=== PATIENT | female | born 1990 | race Caucasian/White ===

== ENCOUNTER 2017-09-27 00:06 | Inpatient (IN) | payer OTHER ==
[2017-09-27] MEDS ORDERED: TRANEXAMIC ACID 1,000 MG/10 ML VIAL ONE (00:11)
[2017-09-27] MEDS ORDERED: CEFAZOLIN 1 GM/DEXTROSE/50 ML BAG IV ONE (00:16)
[2017-09-27] MEDS ORDERED: KETAMINE 500 MG/10 ML VIAL ONE (00:16)
[2017-09-27] MEDS ORDERED: TDAP ADULT 0.5 ML INJ (BOOSTRIX) IM ONE (00:24)
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
[2017-09-27 00:34] LABS: PLATELET COUNT 349 10^3/uL (150-400)
[2017-09-27] MEDS ORDERED: ROCURONIUM 50 MG/5 ML VIAL ONE ×3 (00:41→03:50)
[2017-09-27] MEDS ORDERED: fentaNYL 250 MCG/5 ML INJ ONE (00:41)
[2017-09-27] MEDS ORDERED: DEXAMETHASONE 4 MG/ML VIAL ONE (00:41)
[2017-09-27] MEDS ORDERED: PROPOFOL 200 MG/20 ML VIAL ONE (00:41)
[2017-09-27] MEDS ORDERED: ePHEDrine SULFATE 25 MG/5 ML SYR ONE (00:42)
[2017-09-27] MEDS ORDERED: PHENYLEPHRINE HCL 100 MCG/ML SYR ONE (00:42)
[2017-09-27] MEDS ORDERED: METOCLOPRAMIDE 10 MG/2 ML VIAL ONE (00:42)
[2017-09-27 00:43] LABS: INR 1.1 (0.83-1.16); PROTIME(PATIENT) 14.4 SEC (12.0-15.0)
[2017-09-27] MEDS ORDERED: SUCCINYLCHOLINE CHLORIDE 200 MG/10 ML SYR IVP ONE ×2 (00:44→04:18)
[2017-09-27] MEDS ORDERED: ALBUMIN 5% 250 ML BOTTLE IV ONE ×2 (00:46→02:31)
[2017-09-27] MEDS ORDERED: ETOMIDATE 20 MG/10 ML VIAL ONE (00:46)
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
[2017-09-27 03:06] LABS: PLATELET COUNT 197 10^3/uL (150-400)
[2017-09-27 03:11] LABS: INR 1.54 (0.83-1.16); PROTIME(PATIENT) 18.6 SEC (12.0-15.0)
[2017-09-27] MEDS ORDERED: ONDANSETRON 4 MG/2 ML VIAL IVP PRN (04:20)
[2017-09-27] MEDS ORDERED: PROMETHAZINE HCL 25 MG/ML INJ IVP PRN (04:20)
--- NOTE | 2017-09-27 04:27 | POSTOPPROG ---
Post Op Note Date of Operation: 09/27/17 Surgeon: Seamus Claudio Anesthesiologist: Jose F Anesthesia: GET(General Endotracheal) Pre-op Diagnosis: open Left femur fx Post-op Diagnosis: same Procedure: I&D femur, ORIF femur Findings: comminuted open femur fx Inf/Abcess present in the surg proc area at time of surgery?: No EBL: 50-100 Complications: none
[2017-09-27] MEDS ORDERED: PROPOFOL/EMULSION 1,000 MG/100 ML BOTTLE IV ONE (04:36)
[2017-09-27] MEDS ORDERED: SODIUM BICARBONATE 50 MEQ/50 ML SYR ONE (05:02)
[2017-09-27] MEDS ORDERED: PROPOFOL/EMULSION 100 ML IV SCH (05:25)
[2017-09-27] MEDS ORDERED: NA BICARBONATE 50 MEQ/50 ML VIAL IV ONE ×3 (05:30→06:00)
[2017-09-27] MEDS ORDERED: KETAMINE 200 MG/20 ML VIAL ONE (05:32)
[2017-09-27] MEDS: D5W 1/2 NS W/ 20 KCl/L 1,000 ML IV SCH ×2 (05:57→23:24)
--- NOTE | 2017-09-27 08:40 | PDMN ---
Medical Necessity Medical necessity: [facility] [id number] femur fx, ORIF 3 days I/D femur, ORIF femur- for Open L femur Fx. -comminuted and displaced
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
[2017-09-27] MEDS ORDERED: NALOXONE HCL 0.4 MG/ML INJ IVP PRN (09:15)
[2017-09-27] MEDS: HYDROmorphONE/DILAUDID 6 MG/30 ML PCA IV PRN (09:44)
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
[2017-09-27] MEDS ORDERED: GADOBUTROL 10 ML VIAL IVP ONE (10:37)
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
[2017-09-27 11:24] LABS: CREATINE KINASE 717 IU/L (0-156)
--- NOTE | 2017-09-27 11:50 | POSTANESTH ---
Post Anesthetic Evaluation Cardiovascular Status: Other, See Comment Respiratory Status: Other, See Comment Level of Consciousness/Mental Status: Other, See Comment Pain Control: Adequate, Prn Tx Ordered Nausea/Vomiting Control: Adequate, Prn Tx Ordered Complications Possibly Related to Anesthesia: None Noted (Pt. intubated, sedated. Hemodynamically stable.)
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
--- NOTE | 2017-09-27 14:21 | WOCRNPDOC ---
WOCRN Advanced Assessment Note - Skin Integrity Problem, Advanced Assess Left Hand Dressing Type: Adaptic Touch, Char Dressing Description: Intact, Saturated Closure Description: Not Approximated Exudate Amount: Moderate Exudate Color: Red Exudate Characteristic(s): Bloody Integumentary Issue Intervention: Dressing Changed Heidi Wound Tissue: Intact Wound Bed Color: Vega, Red Wound Bed Constitution: Red/Vega - Non Granular Tissue Wound Edges: Attached, Well Defined Site Measurement - Head-to-Toe Length X Width X Depth (cm): 3x3x0.3 Skin Integrity Problem Comment: Patient with abrasion and partial skin flap to dorsum of left hand. Small flap approximated but wound largely without flap. Unable to secure with steri-strips but will otherwise follow skin tear protocol. Wound bed cleaned with NS and gauze. Adaptic touch placed over wound bed and hydrogel to wound bed. EDDIE Adams to complete the dressing change following removal of a line so that it would not be included in the dressing. Wound care will not continue to follow this wound.
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
[2017-09-27] MEDS: OXYCODONE/APAP 5/325 TAB PO PRN ×2 (17:59→23:22)
[2017-09-28] MEDS: HYDROmorphONE/DILAUDID 6 MG/30 ML PCA IV PRN (02:48)
[2017-09-28] MEDS: OXYCODONE/APAP 5/325 TAB PO PRN ×3 (06:39→19:08)
[2017-09-28 06:45] LABS: INR 1.65 (0.83-1.16); PROTIME(PATIENT) 19.6 SEC (12.0-15.0)
[2017-09-28 10:32] LABS: PLATELET COUNT 98 10^3/uL (150-400)
[2017-09-28] MEDS ORDERED: ACETAMINOPHEN 325 MG TAB PO PRN (12:56)
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
[2017-09-29] MEDS: OXYCODONE/APAP 5/325 TAB PO PRN ×4 (00:50→19:13)
[2017-09-29] MEDS ORDERED: ALTEPLASE 2 MG VIAL IVP PRN (07:41)
[2017-09-29] MEDS ORDERED: BISACODYL 10 MG SUPP PR PRN (08:54)
[2017-09-29] MEDS ORDERED: LACTULOSE 20 GM/30 ML UDCUP PO PRN (08:54)
[2017-09-29] MEDS ORDERED: CEFUROXIME AXETIL 250 MG TAB PO SCH (09:00)
[2017-09-29] MEDS: SENNOSIDES/DOCUSATE SODIUM TAB PO SCH ×2 (10:27→21:28)
[2017-09-29] MEDS: CEFUROXIME AXETIL 250 MG TAB PO SCH ×2 (11:06→21:29)
[2017-09-29] MEDS: oxyCODONE IR 5 MG TAB PO PRN ×2 (15:34→23:10)
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
[2017-09-30] MEDS: OXYCODONE/APAP 5/325 TAB PO PRN ×4 (01:58→18:38)
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
[2017-09-30] MEDS ORDERED: NS 500 ML IV ONE (10:53)
[2017-09-30] MEDS: SENNOSIDES/DOCUSATE SODIUM TAB PO SCH ×2 (12:02→20:26)
[2017-09-30] MEDS: CEFUROXIME AXETIL 250 MG TAB PO SCH (12:04)
[2017-09-30] MEDS: oxyCODONE IR 5 MG TAB PO PRN ×2 (13:58→23:08)
--- NOTE | 2017-09-30 14:25 | ASMTCMCOM ---
CM Note CM Note Notes: Chart reviewed for dc planning purposes. Patient needing transfusion for decreased H&H. Therapies recommending inpatient rehab, CM to follow. PLan: Inpatient rehab evaluation. Date Signed: 09/30/2017 02:24 PM Electronically Signed By:Lucy Gillette RN
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
[2017-09-30 16:47] LABS: INR 1.1 (0.83-1.16); PROTIME(PATIENT) 14.4 SEC (12.0-15.0)
[2017-10-01] MEDS: OXYCODONE/APAP 5/325 TAB PO PRN ×3 (01:15→22:10)
[2017-10-01 04:38] LABS: PLATELET COUNT 146 10^3/uL (150-400)
[2017-10-01] MEDS: oxyCODONE IR 5 MG TAB PO PRN ×3 (06:20→18:24)
[2017-10-01] MEDS: SENNOSIDES/DOCUSATE SODIUM TAB PO SCH ×2 (09:04→21:20)
[2017-10-01 11:40] LABS: HEPATITIS B SURFACE ANTIGEN NEGATIVE (NEGATIVE)
[2017-10-01 11:53] LABS: HEPATITIS A ANTIBODY IGM (BCH) NEGATIVE (NEGATIVE)
[2017-10-01 11:57] LABS: HEPATITIS C ANTIBODY TOTAL NEGATIVE (NEGATIVE)
[2017-10-01 12:16] LABS: HEPATITIS B CORE AB IGM NEGATIVE (NEGATIVE)
--- NOTE | 2017-10-01 13:39 | TRAUMAPN ---
Trauma Progress Note Assessment/Plan: Assessment: Plan: Subjective: sleeping, arousable and appropiate. lngs clear. heart normall. tachy no m abd soft ext - moves l toes labs- hct 22- will leave alone.. plan:transer to floor Objective: Vital Signs Temp Pulse Resp BP Pulse Ox 36.8 C 112 H 22 H 110/62 96 10/01/17 02:00 10/01/17 12:00 10/01/17 12:00 10/01/17 12:00 10/01/17 12:00 Laboratory Results 10/01/17 04:31 09/28/17 06:25 09/30/17 10/01/17 10/02/17 05:59 05:59 05:59 Intake Total 1740 3950 Output Total 900 800 Balance 840 3150 PT 14.4 SEC (12.0-15.0) 09/30/17 16:25 INR 1.10 (0.83-1.16) 09/30/17 16:25 - C-Spine Clearance Cervical Spine Cleared: No
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
[2017-10-02] MEDS: oxyCODONE IR 5 MG TAB PO PRN ×4 (00:27→19:55)
[2017-10-02] MEDS: OXYCODONE/APAP 5/325 TAB PO PRN ×4 (03:55→23:53)
[2017-10-02] MEDS: SENNOSIDES/DOCUSATE SODIUM TAB PO SCH ×2 (09:20→19:55)
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
--- NOTE | 2017-10-02 16:10 | ASMTCMCOM ---
CM Note CM Note Notes: OT/PT/RESEARCH SUPPORT SPECIALIST rec inpatient rehab. [facility] inpatient rehab is assessing pt. Pt preferred inpatient rehab is [facility] even though she resides in [place]. Pt mother was not present and pt provided permission to call her, attempted to reach pt mother Livia [phone] for d/c planning discussion and had to leave voicemail. CM to follow. D/c plan of care: [facility] inpatient if clinically accepted and insurance authorizes Date Signed: 10/02/2017 04:09 PM Electronically Signed By:ANTHONY Woodward
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
[2017-10-02] MEDS: POLYETHYLENE GLYCOL 3350 17 GM PKT PO PRN (20:06)
[2017-10-02] MEDS: CYCLOBENZAPRINE 10 MG TAB PO PRN (22:13)
[2017-10-03] MEDS: oxyCODONE IR 5 MG TAB PO PRN ×4 (03:56→20:45)
[2017-10-03] MEDS: OXYCODONE/APAP 5/325 TAB PO PRN (08:16)
[2017-10-03] MEDS: SENNOSIDES/DOCUSATE SODIUM TAB PO SCH ×2 (08:19→20:44)
[2017-10-03] MEDS: CYCLOBENZAPRINE 10 MG TAB PO PRN ×2 (08:19→21:03)
[2017-10-03] MEDS: POLYETHYLENE GLYCOL 3350 17 GM PKT PO PRN (08:19)
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
[2017-10-03] MEDS: MAGNESIUM HYDROXIDE 30 ML UDCUP PO PRN (12:44)
[2017-10-04] MEDS: oxyCODONE IR 5 MG TAB PO PRN ×6 (01:33→20:54)
[2017-10-04 08:18] LABS: PLATELET COUNT 267 10^3/uL (150-400)
[2017-10-04] MEDS: POLYETHYLENE GLYCOL 3350 17 GM PKT PO PRN (09:50)
[2017-10-04] MEDS: SENNOSIDES/DOCUSATE SODIUM TAB PO SCH ×2 (09:50→20:43)
[2017-10-04] MEDS: MAGNESIUM HYDROXIDE 30 ML UDCUP PO PRN (13:06)
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
[2017-10-04] MEDS: CYCLOBENZAPRINE 10 MG TAB PO PRN ×2 (15:52→22:52)
[2017-10-05] MEDS: oxyCODONE IR 5 MG TAB PO PRN ×5 (03:06→20:26)
[2017-10-05] MEDS: SENNOSIDES/DOCUSATE SODIUM TAB PO SCH ×2 (10:04→20:26)
[2017-10-05] MEDS: CYCLOBENZAPRINE 10 MG TAB PO PRN ×2 (10:05→18:46)
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
--- NOTE | 2017-10-05 14:39 | ASMTCMCOM ---
CM Note CM Note Notes: Spoke with patient and her mom about inpatient rehab - they would actually like to be closer to [place] since patient's therapist is there and staying in close contact with the therapist is very important. Per patient's mother, [facility] (formerly [facility] in [place] is first choice. I sent a referral, and they have initiated insurance authorization. I notified Nita at [facility] that patient had chosen another facility; she will close the case. We will await insurance auth from [facility], and they may also send a liason to meet with patient and mom. Case Management will follow. Date Signed: 10/05/2017 02:38 PM Electronically Signed By:Therese Celaya RN
[2017-10-05] MEDS: MAGNESIUM HYDROXIDE 30 ML UDCUP PO PRN (16:55)
[2017-10-06] MEDS: CYCLOBENZAPRINE 10 MG TAB PO PRN ×3 (02:54→15:58)
[2017-10-06] MEDS: oxyCODONE IR 5 MG TAB PO PRN ×6 (02:54→22:08)
[2017-10-06] MEDS: SENNOSIDES/DOCUSATE SODIUM TAB PO SCH ×2 (09:38→22:08)
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
--- NOTE | 2017-10-06 16:31 | ASMTCMCOM ---
CM Note CM Note Notes: Updated clinicals sent to [facility] inpatient rehab, spoke with Charlie in admissions who report there is still no insurance authorization. D/c plan of care: [facility] inpatient rehab pending insurance authorization Date Signed: 10/06/2017 04:30 PM Electronically Signed By:ANTHONY Woodward
[2017-10-06] MEDS: ACETAMINOPHEN 500 MG TAB PO SCH (18:49)
--- NOTE | 2017-10-06 19:28 | TRAUMAPN ---
Trauma Progress Note Assessment/Plan: 10/06/2017 assessment: pain intermittently a problem C/o right trapezius spasm ( intermittently ) Notes occasional small black spots in visual field but no other visual or neurologic findings. Still no stool Discussion held regarding Alcohol use and issues. plan: Re-assessment in AM, consider F/u CT but I tghink that she is just describing "Floaters" Try suppository re-check labs possible transfer to LTAC Subjective: I don't like my C-collar Objective: Vital Signs Temp Pulse Resp BP Pulse Ox 37.1 C 105 H 14 101/72 95 10/06/17 15:10 10/06/17 15:10 10/06/17 15:10 10/06/17 15:10 10/06/17 15:10 Laboratory Results 10/04/17 07:50 10/04/17 07:50 10/05/17 10/06/17 10/07/17 05:59 05:59 05:59 Intake Total 700 1540 Output Total 2 Balance 700 1538 PT 14.4 SEC (12.0-15.0) 09/30/17 16:25 INR 1.10 (0.83-1.16) 09/30/17 16:25 - C-Spine Clearance Cervical Spine Cleared: No Physical Exam - Physical Exam General Appearance: WD/WN, alert, no apparent distress Neck: other (In C-collar) Respiratory: chest non-tender, lungs clear, normal breath sounds Cardiac/Chest: regular rate, rhythm Abdomen: normal bowel sounds, non-tender, soft Pelvic Exam: deferred Rectal: deferred Back: Normal inspection Skin: normal color, warm/dry Neuro/Psych: no motor/sensory deficits, alert, normal mood/affect, oriented x 3 Time Spent w/Patient (minutes): 25
[2017-10-06] MEDS: GABAPENTIN 300 MG CAP PO SCH (22:08)
[2017-10-07] MEDS: ACETAMINOPHEN 500 MG TAB PO SCH ×3 (02:15→17:52)
[2017-10-07 05:47] LABS: PLATELET COUNT 278 10^3/uL (150-400)
[2017-10-07] MEDS: oxyCODONE IR 5 MG TAB PO PRN ×5 (06:41→21:33)
[2017-10-07] MEDS: CYCLOBENZAPRINE 10 MG TAB PO PRN ×2 (06:42→21:33)
[2017-10-07] MEDS: SENNOSIDES/DOCUSATE SODIUM TAB PO SCH ×2 (09:10→21:33)
[2017-10-07] MEDS: GABAPENTIN 300 MG CAP PO SCH ×3 (09:14→21:33)
[2017-10-07] MEDS: MAGNESIUM HYDROXIDE 30 ML UDCUP PO PRN (18:01)
--- NOTE | 2017-10-07 22:59 | TRAUMAPN ---
Trauma Progress Note Assessment/Plan: 10/06/2017 assessment: pain intermittently a problem C/o right trapezius spasm ( intermittently ) Notes occasional small black spots in visual field but no other visual or neurologic findings. Still no stool Discussion held regarding Alcohol use and issues. plan: Re-assessment in AM, consider F/u CT but I think that she is just describing "Floaters" Try suppository re-check labs possible transfer to LTAC 10/07/2017 Assessment: continues to improve. "Floaters" less of an issue Has a superficial phlebitis on left forearm had swelling of RUE ( arm with PICC) but no DVT on duplex scanning Pituitary adenoma finding reviewed again with patient and mom. Plan: Awaiting transfer to LTAC. Subjective: overall, I'm better Objective: Vital Signs Temp Pulse Resp BP Pulse Ox 36.4 C 95 16 94/59 L 99 10/07/17 22:55 10/07/17 22:55 10/07/17 22:55 10/07/17 22:55 10/07/17 22:55 Laboratory Results 10/07/17 04:52 10/07/17 04:52 10/06/17 10/07/17 10/08/17 05:59 05:59 05:59 Intake Total 1540 Output Total 2 Balance 1538 PT 14.4 SEC (12.0-15.0) 09/30/17 16:25 INR 1.10 (0.83-1.16) 09/30/17 16:25 - C-Spine Clearance Cervical Spine Cleared: No Physical Exam - Physical Exam Respiratory: lungs clear, normal breath sounds Cardiac/Chest: regular rate, rhythm Abdomen: non-tender, soft Pelvic Exam: deferred Rectal: deferred Back: Normal inspection Skin: normal color, warm/dry Extremities: other (superficial phlebitis on proximal lateral left forearm) Neuro/Psych: no motor/sensory deficits, alert, normal mood/affect, oriented x 3 Time Spent w/Patient (minutes): 25
[2017-10-08] MEDS: ACETAMINOPHEN 500 MG TAB PO SCH ×3 (03:22→18:37)
[2017-10-08] MEDS: oxyCODONE IR 5 MG TAB PO PRN ×5 (06:46→22:49)
[2017-10-08] MEDS: CYCLOBENZAPRINE 10 MG TAB PO PRN (06:46)
[2017-10-08] MEDS: POLYETHYLENE GLYCOL 3350 17 GM PKT PO PRN (08:22)
[2017-10-08] MEDS: GABAPENTIN 300 MG CAP PO SCH ×3 (08:22→21:22)
[2017-10-08] MEDS: SENNOSIDES/DOCUSATE SODIUM TAB PO SCH ×2 (08:23→21:22)
--- NOTE | 2017-10-08 12:26 | ASMTCMCOM ---
CM Note CM Note Notes: [facility] has denied inpatient rehab level of care. Dr. Kimball was provided the information to complete a peer to peer. Pt and mother Livia want to see what [facility] will determine with peer to peer before solidifying an alternative d/c plan. [facility] letter of denial indicates pt needs can be met at SNF or outpatient. Provided information on SNFs, [facility] may be best SNF options. Pt mother indicated outpatient would be in [place]. Livia reports another family member is coming to [place] this weekend and then the two of them could drive pt to [place]. Pt states she can travel, no legal issue requires her to stay in [place]. CM to follow. Date Signed: 10/08/2017 12:25 PM Electronically Signed By:ANTHONY Woodward
--- NOTE | 2017-10-08 22:58 | TRAUMAPN ---
Trauma Progress Note Assessment/Plan: 10/06/2017 assessment: pain intermittently a problem C/o right trapezius spasm ( intermittently ) Notes occasional small black spots in visual field but no other visual or neurologic findings. Still no stool Discussion held regarding Alcohol use and issues. plan: Re-assessment in AM, consider F/u CT but I think that she is just describing "Floaters" Try suppository re-check labs possible transfer to LTAC 10/07/2017 Assessment: continues to improve. "Floaters" less of an issue Has a superficial phlebitis on left forearm had swelling of RUE ( arm with PICC) but no DVT on duplex scanning Pituitary adenoma finding reviewed again with patient and mom. Plan: Awaiting transfer to LTAC. 10/08/2017 Insurance denied LTAC care. I had hoped to call debbiee a PEER to PEER discussion but was not able to. Will try on Thursday. If unsuccessful may need to reconsider options. Assessment: Still has superficial phlebitis on proximal left forearm. K-pad not available. Left thigh still quite swollen. She has been using ice on it. Now she c/o decreased sensation just lateral to incisions. Possible causes incluse: trauma, surgical, surgical incisions, or stretching of nerves due to swelling. Another possibility might include too much topical cooling with a resulting neuropathy. I suggest using a heating pad instead to help with the resolution of the hematoma/swelling. She agrees to try this approach. more K-pads will be sought. otherwise doing well. Subjective: I'm tired. Also complains of leg numbness ( see above) Objective: Vital Signs Temp Pulse Resp BP Pulse Ox 37.2 C 104 H 20 118/65 96 10/08/17 15:02 10/08/17 15:02 10/08/17 15:02 10/08/17 15:02 10/08/17 15:02 Laboratory Results 10/07/17 04:52 10/07/17 04:52 PT 14.4 SEC (12.0-15.0) 09/30/17 16:25 INR 1.10 (0.83-1.16) 09/30/17 16:25 - C-Spine Clearance Cervical Spine Cleared: No Physical Exam - Physical Exam General Appearance: WD/WN, alert, no apparent distress Respiratory: chest non-tender, lungs clear, normal breath sounds Cardiac/Chest: regular rate, rhythm Abdomen: normal bowel sounds, non-tender, soft Pelvic Exam: deferred Rectal: deferred Back: Normal inspection Skin: normal color, warm/dry, other (ecchymosis and edema of left thigh) Neuro/Psych: no motor/sensory deficits, alert, normal mood/affect, oriented x 3 Time Spent w/Patient (minutes): 25
[2017-10-09] MEDS: ACETAMINOPHEN 500 MG TAB PO SCH ×3 (03:09→18:40)
[2017-10-09] MEDS: oxyCODONE IR 5 MG TAB PO PRN ×6 (03:10→22:17)
[2017-10-09] MEDS: GABAPENTIN 300 MG CAP PO SCH ×3 (08:45→21:02)
[2017-10-09] MEDS: SENNOSIDES/DOCUSATE SODIUM TAB PO SCH ×2 (08:46→21:02)
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
--- NOTE | 2017-10-09 15:39 | ASMTCAGE ---
CAGE Additional Comments Pt is experiencing post-traumatic stress symptoms, has a therapist working with her and a CAGE is not appropriate at this time. Date Signed: 10/09/2017 03:39 PM Electronically Signed By:ANTHONY Woodward
--- NOTE | 2017-10-09 16:13 | ASMTCMCOM ---
CM Note CM Note Notes: Dr. Posada called in peer to peer; [facility] still does not authorize inpatient acute rehab and authorizes [facility] for 14 days. Pt and mother agreeable to [facility] as a d/c plan. Spoke with Cheryl of [facility] and it is late in the day for them to take her today, will plan on admission tomorrow. CM to follow. Date Signed: 10/09/2017 04:12 PM Electronically Signed By:ANTHONY Woodward
[2017-10-10] MEDS: ACETAMINOPHEN 500 MG TAB PO SCH ×2 (04:13→11:20)
[2017-10-10] MEDS: oxyCODONE IR 5 MG TAB PO PRN ×4 (05:05→14:28)
[2017-10-10] MEDS: SENNOSIDES/DOCUSATE SODIUM TAB PO SCH (08:08)
[2017-10-10] MEDS: GABAPENTIN 300 MG CAP PO SCH (08:09)
[2017-10-10 08:27] VITALS: BP 122/78
--- NOTE | 2017-10-10 10:37 | TRAUMAPN ---
Trauma Progress Note Assessment/Plan: 10/06/2017 assessment: pain intermittently a problem C/o right trapezius spasm ( intermittently ) Notes occasional small black spots in visual field but no other visual or neurologic findings. Still no stool Discussion held regarding Alcohol use and issues. plan: Re-assessment in AM, consider F/u CT but I think that she is just describing "Floaters" Try suppository re-check labs possible transfer to LTAC 10/07/2017 Assessment: continues to improve. "Floaters" less of an issue Has a superficial phlebitis on left forearm had swelling of RUE ( arm with PICC) but no DVT on duplex scanning Pituitary adenoma finding reviewed again with patient and mom. Plan: Awaiting transfer to LTAC. 10/08/2017 Insurance denied LTAC care. I had hoped to call foe a PEER to PEER discussion but was not able to. Will try on Thursday. If unsuccessful may need to reconsider options. Assessment: Still has superficial phlebitis on proximal left forearm. K-pad not available. Left thigh still quite swollen. She has been using ice on it. Now she c/o decreased sensation just lateral to incisions. Possible causes incluse: trauma, surgical, surgical incisions, or stretching of nerves due to swelling. Another possibility might include too much topical cooling with a resulting neuropathy. I suggest using a heating pad instead to help with the resolution of the hematoma/swelling. She agrees to try this approach. more K-pads will be sought. otherwise doing well. 10/10/2017 Assessment: Continues to improve. Had serous leakage from thigh after delio removed. Now resolved. Steri strips replaced. Thigh still swollen. still numb near incision ( no change) Plan: to LTAC today Subjective: No complaints Objective: Vital Signs Temp Pulse Resp BP Pulse Ox 37.1 C 100 18 122/78 H 100 10/10/17 08:00 10/10/17 08:00 10/10/17 08:00 10/10/17 08:00 10/10/17 08:00 Laboratory Results 10/07/17 04:52 10/07/17 04:52 10/09/17 10/10/17 10/11/17 05:59 05:59 05:59 Intake Total 500 850 Balance 500 850 PT 14.4 SEC (12.0-15.0) 09/30/17 16:25 INR 1.10 (0.83-1.16) 09/30/17 16:25 - C-Spine Clearance Cervical Spine Cleared: No Physical Exam - Physical Exam General Appearance: WD/WN, alert, no apparent distress Neck: other (Collar in place) Respiratory: chest non-tender, lungs clear, normal breath sounds Cardiac/Chest: regular rate, rhythm Abdomen: normal bowel sounds, non-tender, soft Pelvic Exam: deferred Rectal: deferred Back: Normal inspection Skin: normal color, warm/dry, other (Left medial thigh still has signs of resolving hematoma) Neuro/Psych: no motor/sensory deficits, alert, normal mood/affect, oriented x 3 Time Spent w/Patient (minutes): 15
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
--- NOTE | 2017-10-10 13:03 | ASMTDCNOTE ---
Case Management Discharge Discharge Order Complete? Answers: Yes Patient to Obtain Answers: Other Notes: [facility] Medications Transportation Arranged Answers: [facility] will Pick (Date 10/10/2017 02:30 PM & Time) Case Management Transport Answers: Yes Form Complete Faxed Final Orders Answers: Yes Agency/Facility Transfer Answers: Yes Report Printed & Faxed to Receiving Agency Family Notified Answers: Yes Discharge Comments Notes: Yesterday at 4:30 PM, Pt's mother was notified that the authorization for acute rehab had been approved .She communicated that to this morning. Pt has been authorized for [facility] in [place]. [facility] is arranging transportation. Pt to go to [facility] this afternoon at2:30PM. Date Signed: 10/10/2017 01:02 PM Electronically Signed By:Archana Muir
== END 2017-10-10 14:51 | DRG 956 ==
LOC: UNDOADMIN 00:47 → FSGY 01:29 → EEVIPCON 04:30 → F2N 04:30 → F3N 10-01 16:08
PROVIDERS: ADMIT Orthopaedic Surgery; ATTEND Surgery
PROC: 30233K1 Transfusion of Nonautologous Frozen Plasma into Peripheral Vein, Percutaneous Approach (ICD-10-PCS; 2017-09-27)
PROC: 30233R1 Transfusion of Nonautologous Platelets into Peripheral Vein, Percutaneous Approach (ICD-10-PCS; 2017-09-27)
PROC: 30233N1 Transfusion of Nonautologous Red Blood Cells into Peripheral Vein, Percutaneous Approach (ICD-10-PCS; 2017-09-27)
PROC: 0KQR0ZZ Repair Left Upper Leg Muscle, Open Approach (ICD-10-PCS; principal; 2017-09-27 00:45)
PROC: 0PSH3ZZ Reposition Right Radius, Percutaneous Approach (ICD-10-PCS; principal; 2017-09-27 00:45)
PROC: 0QB70ZZ Excision of Left Upper Femur, Open Approach (ICD-10-PCS; principal; 2017-09-27 00:45)
PROC: 0QS704Z Reposition Left Upper Femur with Internal Fixation Device, Open Approach (ICD-10-PCS; principal; 2017-09-27 00:45)
PROC: 02HV33Z Insertion of Infusion Device into Superior Vena Cava, Percutaneous Approach (ICD-10-PCS; 2017-09-29)
DX: S72.302 Unspecified fracture of shaft of left femur (principal); S52.511A Displaced fracture of right radial styloid process, initial encounter for closed fracture; S36.031A Moderate laceration of spleen, initial encounter; S02.113A Unspecified occipital condyle fracture, initial encounter for closed fracture; K72.00 Acute and subacute hepatic failure without coma; S06.0X9A Concussion with loss of consciousness of unspecified duration, initial encounter; S62.306A Unspecified fracture of fifth metacarpal bone, right hand, initial encounter for closed fracture; D62 Acute posthemorrhagic anemia; I80.8 Phlebitis and thrombophlebitis of other sites; F10.229 Alcohol dependence with intoxication, unspecified; F17.200 Nicotine dependence, unspecified, uncomplicated; D35.2 Benign neoplasm of pituitary gland; V43.52XA Car driver injured in collision with other type car in traffic accident, initial encounter; Y92.410 Unspecified street and highway as the place of occurrence of the external cause
CPT/HCPCS: 92507-GN; 92523-GN; 97110-GO; 97110-GP; 97116-GP; 97163-GP; 97166-GO; 97530-GO; 97530-GP; 97535-GO; A9585; C1713; C1751; G0472; G0480; J0330; J0690; J1100; J1170; J2270; J2370; J2550; J2704; J2765; J2997; J3010; P9016; P9017; P9035; P9041